=== PATIENT | female | born 1995 | race Caucasian/White ===

== ENCOUNTER 2016-09-20 22:53 | Emergency (ER) | payer OTHER ==
[2016-09-20] MEDS ORDERED: NS 0.9% 1000 ML* 2,000 ML IV ONE (23:29)
[2016-09-20] MEDS ORDERED: Ondansetron INJ* 2 MG/ML VIAL IV PRN (23:29)
[2016-09-20] MEDS ORDERED: LORazepam INJ* 2 MG/ML 1 ML VIAL IV PUSH ONE (23:34)
[2016-09-20] MEDS ORDERED: Ondansetron INJ* 2 MG/ML VIAL ONE (23:38)
[2016-09-20] MEDS ORDERED: Famotidine IV* 10 MG/ML 2 ML (20 mg) IV SLOW PU ONE (23:46)
[2016-09-20 23:51] LABS: Hematocrit 49 % (35-47); Hemoglobin 16.1 g/dl (12.0-16.0); Mean Corpuscular HGB Conc 33 g/dl (31-36); Mean Corpuscular Hemoglobin 29 pg (27-31); Mean Corpuscular Volume 88 fL (80-97); Mean Platelet Volume 10 um3 (7.4-10.4); Red Blood Count 5.52 10^6/ul (4.0-5.4); Red Cell Distribution Width 14 % (10.5-15); White Blood Count 19.7 10^3/ul (3.5-10.8)
--- NOTE | 2016-09-20 23:54 | ED ---
Abdominal Pain/Female - HPI Summary HPI Summary: Patient arrives with CC of vomiting 10-15 times since 4 hours ago. Sudden onset and constant. She was seen in the ED twice before for the same issue and needed multiple doses of zofran for control. Endorses lower abdominal pain. Denies fever or illness. Partner with her explains this has happened at least twice a year for several years but has never been diagnosed with cyclical vomiting syndrome. Denies diarrhea, constipation. Patient was given zofran and omeprazole at discharge but used up all the medications within the 30 days. - History of Current Complaint Chief Complaint: EDNauseaVomitDiarrh Stated Complaint: VOMITING Time Seen by Provider: 09/20/16 23:04 Hx Obtained From: Patient ?: No Onset/Duration: Sudden Onset Timing: Constant Severity Currently: Severe Pain Intensity: 10 Pain Scale Used: 0-10 Numeric Radiates: No Character: Sharp Alleviating Factor(s): Other: - zofran Associated Signs and Symptoms: Positive: Nausea, Vomiting - Risk Factors Ectopic Risk Factor: Negative Ovarian Torsion Risk Factor: Reproductive Age Allergies/Adverse Reactions: Allergies Allergy/AdvReac Type Severity Reaction Status Date / Time No Known Allergies Allergy Verified 07/02/16 07:33 PMH/Surg Hx/FS Hx/Imm Hx Previously Healthy: Yes Endocrine/Hematology History: Reports: Other Endocrine/Hematological Disorders - Hx of lymes disease Denies: Hx Diabetes Respiratory History: Reports: Hx Asthma - As a child GI History: Reports: Hx Gastroesophageal Reflux Disease Sensory History: Reports: Hx Contacts or Glasses Opthamlomology History: Reports: Hx Contacts or Glasses Infectious Disease History: No Infectious Disease History: Denies: Traveled Outside the [place] in Last 30 Days - Family History Known Family History: Negative: Cardiac Disease - Social History Occupation: Unemployed Lives: With Family Alcohol Use: Weekly Alcohol Amount: 3 Hx Substance Use: Yes Substance Use Type: Reports: Marijuana Substance Use Comment - Amount & Last Used: 07/01/16 Hx Tobacco Use: No Smoking Status (MU): Never Smoked Tobacco Review of Systems Constitutional: Negative Eyes: Negative Cardiovascular: Negative Respiratory: Negative Positive: Vomiting, Nausea Positive: no symptoms reported, see HPI Positive: Arthralgia Skin: Negative Neurological: Negative Psychological: Normal All Other Systems Reviewed And Are Negative: Yes Physical Exam Triage Information Reviewed: Yes Vital Signs On Initial Exam: Initial Vitals Temp Pulse Resp BP Pulse Ox 97.2 F 71 16 124/83 100 09/20/16 23:01 09/20/16 23:01 09/20/16 23:01 09/20/16 23:01 09/20/16 23:01 Vital Signs Reviewed: Yes Appearance: Positive: Ill-Appearing Skin: Positive: Warm, Skin Color Reflects Adequate Perfusion, Diaphoretic Eyes: Positive: Normal, EOMI Neck: Positive: Nontender, No Lymphadenopathy Respiratory/Lung Sounds: Positive: Clear to Auscultation, Breath Sounds Present Cardiovascular: Positive: Normal, RRR Abdomen Description: Positive: Soft Bowel Sounds: Positive: Present Musculoskeletal: Positive: Normal, Strength/ROM Intact Neurological: Positive: Sensory/Motor Intact, Speech Normal Psychiatric: Positive: Normal AVPU Assessment: Alert Diagnostics - Vital Signs Vital Signs Temp Pulse Resp BP Pulse Ox 09/20/16 23:41 16 09/20/16 23:01 97.2 F 71 16 124/83 100 - Laboratory Result Diagrams: 09/20/16 23:42 09/21/16 00:55 Lab Statement: Any lab studies that have been ordered have been reviewed, and results considered in the medical decision making process. Abdominal Pain Fem Course/Dx - Course Course Of Treatment: WBC at 19,000. Afebrile. Intermittent vomiting episodes since 7pm. Has not tried anything at home prior to arrival. 3L fluids. 8mg zofran, 2mg dialudid, 2mg ativan all given over course of 2.5 hours. Patient still notes to 5/10 pain but is sleeping. Mild vomiting now. Patient very lethargic but arouasable. Will sign out to Dr. Medrano at this time of 1:35am. - Diagnoses Differential Diagnosis: Positive: Appendicitis, Irritable Bowel Syndrome, Other - N/V, cyclical vomiting syndrome, Provider Diagnoses: Hyperemesis Is Visit Related: No Discharge - Discharge Plan Condition: Guarded Disposition: HOME Prescriptions: Omeprazole CAP* [Prilosec CAP* 20 MG] 40 mg PO DAILY #60 cap. Ondansetron ODT TAB* [Zofran Odt TAB*] 8 mg PO Q6H PRN #60 tab.odt MDD 4 PRN Reason: Nausea Patient Education Materials: Omeprazole (By mouth), Ondansetron (By mouth), Acute Nausea and Vomiting (ED) Referrals: [facility] [Primary Care Provider] - Additional Instructions: Follow up with PCP.
[2016-09-20 23:56] LABS: Add Diff/Slide Review? Slide Review Added; Comments Flag Yes
[2016-09-21] MEDS ORDERED: HYDROmorphone INJ* 1 MG/ML CARPUJECT SYRINGE IV SLOW PU ONE ×2 (00:13→01:18)
[2016-09-21] MEDS ORDERED: LORazepam INJ* 2 MG/ML 1 ML VIAL IV PUSH ONE (00:13)
[2016-09-21] MEDS ORDERED: LORazepam INJ* 2 MG/ML 1 ML VIAL ONE (00:14)
[2016-09-21] MEDS ORDERED: HYDROmorphone INJ* 1 MG/ML CARPUJECT SYRINGE ONE (00:15)
[2016-09-21] MEDS ORDERED: PROCHLORPERAZINE INJ 5 MG/ML 2 ML VIAL IV PRN (01:17)
[2016-09-21 01:22] LABS: ALT 12 U/L (7-52); AST 13 U/L (13-39); Albumin 3.6 g/dL (3.2-5.2); Alkaline Phosphatase 50 U/L (34-104); Anion Gap 7 mmol/L (2-11); BUN/Creatinine Ratio 14.3 (8-20); Blood Urea Nitrogen 11 mg/dL (6-24); C Reactive Protein 1.99 mg/L (< 5.00); CO2 Carbon Dioxide 22 mmol/L (22-32); Calcium 8.3 mg/dL (8.6-10.3); Chloride 109 mmol/L (101-111); EGFR African American 120.6 (>60); EGFR Non-African American 93.7 (>60); Globulin 2.4 g/dL (2-4); Glucose 111 mg/dL (70-100); Lipase < 10 U/L (11.0-82.0); Potassium 3.6 mmol/L (3.5-5.0); Sodium 138 mmol/L (133-145)
[2016-09-21] MEDS ORDERED: PROCHLORPERAZINE INJ 5 MG/ML 2 ML VIAL ONE (01:22)
[2016-09-21] MEDS ORDERED: NS 0.9% 1000 ML* 1,000 ML IV ONE (01:27)
--- NOTE | 2016-09-21 03:26 | ED ---
Progress - Progress Note Progress Note: pt is a sign out from Andreas, pt feeling better no vomiting since sign out ok to give Course/Dx - Course Course Of Treatment: WBC at 19,000. Afebrile. Intermittent vomiting episodes since 7pm. Has not tried anything at home prior to arrival. 3L fluids. 8mg zofran, 2mg dialudid, 2mg ativan all given over course of 2.5 hours. Patient still notes to 5/10 pain but is sleeping. Mild vomiting now. Patient very lethargic but arouasable. Will sign out to Dr. Medrano at this time of 1:35am. - Diagnoses Provider Diagnoses: Hyperemesis Is Visit Related: No
[2016-09-21 03:41] VITALS: BP 107/56
[2016-09-21] MEDS ORDERED: Ondansetron ODT TAB* 4 MG PO ONE (03:47)
[2016-09-21] MEDS ORDERED: HYDROcodone/ACETAMIN 5-325 MG* 1 TAB PO ONE (03:48)
== END 2016-09-21 04:11 | disposition home or self-care (01) ==
LOC: ED 22:53
DX: R11.2 Nausea with vomiting, unspecified (principal)
CPT/HCPCS: 36415; 80053; 83690; 85025; 86140; 96374; 96375; 99284; A9270-GY; J0780; J1170; J2060; J2405

== ENCOUNTER 2017-01-07 17:25 | Emergency (ER) | payer OTHER ==
[2017-01-07 20:13] VITALS: BP 109/82
--- NOTE | 2017-01-07 20:24 | UC ---
Throat Pain/Nasal Aramis HPI - HPI Summary HPI Summary: SORES ON EDGE OF LIPS, ROOF OF MOUTH, CHEEKS AND THROAT. NO FEVER. SORES ON LIPS HAVE GONE AWAY - History of Current Complaint Chief Complaint: UCGeneralIllness Stated Complaint: SORE THROAT Time Seen by Provider: 01/07/17 19:29 Hx Obtained From: Patient Hx Last Menstrual Period: 12/29/16 Onset/Duration: Gradual Onset, Lasting Days, Still Present Severity: Mild Cough: None Associated Signs & Symptoms: Positive: Hoarseness. Negative: Sinus Discomfort, Nasal Discharge, Fever - Epiglottits Risk Factors Epiglottis Risk Factors: Negative - Allergies/Home Medications Allergies/Adverse Reactions: Allergies Allergy/AdvReac Type Severity Reaction Status Date / Time No Known Allergies Allergy Verified 07/02/16 07:33 PMH/Surg Hx/FS Hx/Imm Hx Previously Healthy: Yes - Surgical History Surgical History: None - Family History Known Family History: Negative: Cardiac Disease, Diabetes - Social History Occupation: Student Lives: With Family Alcohol Use: None Alcohol Amount: 3 Substance Use Type: None Substance Use Comment - Amount & Last Used: 07/01/16 Smoking Status (MU): Never Smoked Tobacco - Immunization History Most Recent Influenza Vaccination: unknown Most Recent Tetanus Shot: unknown Most Recent Pneumonia Vaccination: never Review of Systems Constitutional: Negative Skin: Negative Eyes: Negative ENT: Sore Throat Respiratory: Negative Cardiovascular: Negative Gastrointestinal: Negative Genitourinary: Negative Motor: Negative Neurovascular: Negative Musculoskeletal: Negative Neurological: Negative Psychological: Negative All Other Systems Reviewed And Are Negative: Yes Physical Exam Triage Information Reviewed: Yes Appearance: Well-Appearing, No Pain Distress, Well-Nourished Vital Signs: Initial Vital Signs Temp 99.1 F 01/07/17 17:36 Pulse 63 01/07/17 17:36 Resp 18 01/07/17 17:36 BP 111/71 01/07/17 17:36 Pulse Ox 99 01/07/17 17:36 Vital Signs Reviewed: Yes Eye Exam: Normal ENT Exam: Normal ENT: Positive: Normal ENT inspection, Pharynx normal, TMs normal Dental Exam: Other - SMALL DIFFUSE VESICLES AND PLAQUES ON PALATE, AND BUCCAL MUSOSA Dental: Positive: Other: - SMALL DIFFUSE VESICLES AND PLAQUES ON PALATE, AND BUCCAL MUSOSA Neck exam: Normal Respiratory Exam: Normal Respiratory: Positive: Chest non-tender, Lungs clear, Normal breath sounds, No respiratory distress, No accessory muscle use Cardiovascular Exam: Normal Cardiovascular: Positive: RRR, No Murmur, Pulses Normal Abdominal Exam: Normal Musculoskeletal Exam: Normal Musculoskeletal: Positive: Strength Intact Neurological Exam: Normal Psychological Exam: Normal Skin Exam: Normal Throat Pain/Nasal Course/Dx - Differential Dx/Diagnosis Differential Diagnosis/HQI/PQRI: Epiglottitis, Laryngitis, Scooter's Angina, Tonsillitis, Other - GINGIVOSTOMATITIS Provider Diagnoses: GINGIVOSTOMATITIS Discharge - Discharge Plan Condition: Stable Disposition: HOME Prescriptions: Acyclovir* [Zovirax TAB*] 400 mg PO 5ID #25 tab Patient Education Materials: Gingivostomatitis (ED) Referrals: [facility] REFERRAL [Outside] No Primary Care Phys,NOPCP [Primary Care Provider] -
== END 2017-01-07 20:26 | disposition home or self-care (01) ==
LOC: UCEAST 17:25
DX: K05.10 Chronic gingivitis, plaque induced (principal)
CPT/HCPCS: 87070; 87651; 99211; G0463